=== PATIENT | male | born 1985 | race Caucasian/White ===

== ENCOUNTER 2016-11-15 03:29 | Emergency (ER) | payer SELFPAY ==
[~2016-11-15] VITALS: Ht 185.4 cm; Wt 104.5 kg
[~2016-11-15 03:29] MED LIST: CEPHALEXIN500 M1 PO; DOXY-D100 MG PO; FLUOXETINE; LORTAB 5/500 501 TAB PO; NO HOME MEDICATIONS
[2016-11-15 03:33] VITALS: TEMP 97.9
[2016-11-15 04:17] LABS: BASO # 0.1 (0.0-0.2); BASO % 0.5 % (0.0-2.0); EOS # 0.4 (0.0-0.7); EOS % 2.2 % (0-4.0); GRAN % 68.2 % (42.2-75.2); HEMATOCRIT 47.8 % (42.0-52.0); HEMOGLOBIN 15.9 g/dl (13.5-18.0); LYMPH # 4.1 (1.2-3.4); LYMPH % 23.2 % (20.0-51.0); MEAN CELL VOLUME 90 fl (80.0-100.0); MEAN CORPUSCULAR HEMOGLOBIN 30 pg (27.0-31.0); MEAN CORPUSCULAR HGB CONC 33 g/dl (33.0-37.0); MEAN PLATELET VOLUME 10.3 fl (7.4-10.4); MONO % 5.5 % (1.7-9.3); PLATELET COUNT 350 K/mm3 (130-400); RED BLOOD COUNT 5.29 M/mm3 (4.20-5.60); WHITE BLOOD COUNT 17.6 K/mm3 (4.8-10.8)
[2016-11-15 04:26] LABS: ADJUSTED CALCIUM 9.3 mg/dL (8.4-10.2); ALBUMIN 4.8 gm/dL (3.5-5.0); BILIRUBIN,TOTAL 1.6 mg/dL (0.0-1.0); CALCIUM 9.9 mg/dL (8.4-10.2); CREATININE, serum 1.6 mg/dL (0.66-1.25); POTASSIUM 4.1 mmol/L (3.4-5.0); TOTAL PROTEIN 8.4 gm/dL (6.4-8.2)
[2016-11-15] MEDS ORDERED: NORCO 325 MG-51 TAB PO (04:58)
[2016-11-15 05:22] LABS: PH 6 (5-8); SQUAMOUS EPITHELIAL 0-2 /hpf; URINE APPEARANCE Hazy; URINE BACTERIA None Seen /hpf; URINE BILIRUBIN Negative (NEGATIVE); URINE BLOOD 3+ (NEGATIVE); URINE COLOR Yellow; URINE GLUCOSE Negative (NEGATIVE); URINE KETONE Negative (NEGATIVE); URINE RBC >50 /hpf; URINE UROBILINOGEN >=4.0 mg/dL (NEGATIVE)
[2016-11-15] MEDS ORDERED: CIPRO 500MG TA500 MG PO (05:26)
[2016-11-15 05:32] VITALS: BP 111/74; PULSE 80
== END 2016-11-15 05:37 | disposition home or self-care (01) ==
LOC: COL.ER 03:29
PROVIDERS: Family Medicine
DX: N20.1 Calculus of ureter (principal)
CPT/HCPCS: J1170; J1885; J2405; J7030

== ENCOUNTER 2017-02-08 18:27 | Emergency (ER) | payer SELFPAY ==
[~2017-02-08] VITALS: Ht 185.4 cm; Wt 104.5 kg
[~2017-02-08 18:27] MED LIST changes: +CIPRO 500MG TA500 MG PO; +NORCO 325 MG-51 TAB PO
[2017-02-08 18:29] VITALS: BP 113/54; PULSE 87; TEMP 99.2
== END 2017-02-08 20:36 | disposition left against medical advice (07) ==
LOC: COL.ER 18:27
DX: M54.9 Dorsalgia, unspecified (principal); Z53.21 Procedure and treatment not carried out due to patient leaving prior to being seen by health care provider

== ENCOUNTER 2017-05-02 06:42 | Emergency (ER) | payer SELFPAY ==
[~2017-05-02] VITALS: Ht 185.4 cm; Wt 104.5 kg
[2017-05-02 06:43] VITALS: BP 129/94; TEMP 96.9
[2017-05-02 07:59] LABS: BASO # 0.1 (0.0-0.2); BASO % 0.3 % (0.0-2.0); EOS # 0.3 (0.0-0.7); EOS % 1.7 % (0-4.0); GRAN # 12.5 (1.4-6.5); GRAN % 75.9 % (42.2-75.2); HEMATOCRIT 45.8 % (42.0-52.0); HEMOGLOBIN 15.4 g/dl (13.5-18.0); LYMPH # 2.6 (1.2-3.4); LYMPH % 15.8 % (20.0-51.0); MEAN CELL VOLUME 90 fl (80.0-100.0); MEAN CORPUSCULAR HEMOGLOBIN 30 pg (27.0-31.0); MEAN CORPUSCULAR HGB CONC 34 g/dl (33.0-37.0); MONO % 5.8 % (1.7-9.3); PLATELET COUNT 274 K/mm3 (130-400); RED BLOOD COUNT 5.12 M/mm3 (4.20-5.60); REDCELL DISTRIBUTION WIDTH-CV 12.4 % (11.5-14.5); WHITE BLOOD COUNT 16.4 K/mm3 (4.8-10.8)
[2017-05-02 08:12] LABS: CALCIUM 9.3 mg/dL (8.4-10.2); CREATININE, serum 0.95 mg/dL (0.66-1.25); POTASSIUM 3.6 mmol/L (3.4-5.0)
[2017-05-02 08:34] LABS: HYALINE CAST >12 /lpf; PH 5 (5-8); SQUAMOUS EPITHELIAL 0-2 /hpf; URINE APPEARANCE Cloudy; URINE BACTERIA Rare /hpf; URINE BILIRUBIN Negative (NEGATIVE); URINE BLOOD 3+ (NEGATIVE); URINE COLOR Amber; URINE GLUCOSE Negative (NEGATIVE); URINE KETONE Trace (NEGATIVE); URINE RBC >50 /hpf; URINE WBC 0-2 /hpf
[2017-05-02] MEDS ORDERED: NORCO 325 MG-51 TAB PO (09:02)
[2017-05-02 09:23] VITALS: PULSE 77
== END 2017-05-02 09:24 | disposition home or self-care (01) ==
LOC: COL.ER 06:42
PROVIDERS: Emergency Medicine
DX: N20.1 Calculus of ureter (principal); F17.210 Nicotine dependence, cigarettes, uncomplicated; Z87.442 Personal history of urinary calculi; Z98.890 Other specified postprocedural states
CPT/HCPCS: J1170; J1885; J7030; Q9967